=== PATIENT | female | born 1965 | race African-American/Black ===

== ENCOUNTER 2017-05-06 10:37 | Inpatient (IN) | payer OTHER ==
[2017-05-06 11:43] VITALS: BMI 23.6
--- NOTE | 2017-05-06 15:20 | HP ---
COWS - Scale Resting Pulse: 0= [place] 80 or Below Sweatin= Chills/Flushing Restless Observation: 3= Extraneous Movement Pupil Size: 2= Moderately Dilated Bone or Joint Aches: 4=Acute Joint/Muscle Pain Runny Nose/ Eye Tearin= Nasal Congestion GI Upset > 30mins: 0= None Tremor Observation: 2= Slight Tremor Visible Yawning Observation: 1= 1-2x During Session Anxiety or Irritability: 2=Irritable/Anxious Goose Flesh Skin: 0=Smooth Skin COWS Score: 16 CIWA Score - CIWA Score Nausea/Vomitin-No Nausea/No Vomiting Muscle Tremors: 3 Anxiety: 4-Mod. Anxious/Guarded Agitation: 4-Moderately Restless Paroxysmal Sweats: 1-Minimal Palms Moist Orientation: 0-Oriented Tacttile Disturbances: 3-Moderate Itch/Numb/Burn Auditory Disturbances: 0-None Visual Disturbances: 0-None Headache: 0-None Present CIWA-Ar Total Score: 15 Admission ROS S - HPI Chief Complaint: DETOX TX FOR ALCOHOL AND HEROIN DEPENDENCE Allergies/Adverse Reactions: Allergies Allergy/AdvReac Type Severity Reaction Status Date / Time sulfamethoxazole AdvReac Severe Hives Verified 05/06/17 13:45 [From Bactrim] trimethoprim [From Bactrim] AdvReac Severe Hives Verified 05/06/17 13:45 History of Present Illness: 51 Y/O AA/FEMALE WITH A HX ALCOHOL,HEROIN AND CRACK DEPENDENCE SEEKING DETOX TX. Exam Limitations: No Limitations - Ebola screening Have you traveled outside of the country in the last 21 days: No Have you had contact with anyone from an Ebola affected area: No Have you been sick,other than usual withdrawal symptoms: No Do you have a fever: No - Review of Systems Constitutional: Chills, Loss of Appetite, Night Sweats, Unintentional Wgt. Loss EENT: reports: Tearing, Dental Problems (MISSING TEETH) Respiratory: reports: Shortness of Breath (HX ASTHMA), Wheezing Cardiac: reports: Lightheadedness GI: reports: Constipated, Diarrhea, Nausea, Poor Appetite, Poor Fluid Intake, Vomiting : reports: Frequency Musculoskeletal: reports: Back Pain, Joint Pain, Muscle Pain Integumentary: reports: Bruising (SCARS ON UPPER ARM FROM IVDU) Neuro: reports: Headache, Tremors, Unsteady Gait, Dizziness Endocrine: reports: No Symptoms Reported Hematology: reports: Anemia Psychiatric: reports: Orientated x3, Anxious, Depressed Other Systems: Reviewed and Negative Patient History - Patient Medical History Hx Anemia: Yes (on iron ) Hx Asthma: Yes (MDI) Hx Chronic Obstructive Pulmonary Disease (COPD): No Hx Cancer: No Hx Cardiac Disorders: No Hx Congestive Heart Failure: No Hx Hypertension: Yes (ON MED) Hx Hypercholesterolemia: No Hx Pacemaker: No HX Cerebrovascular Accident: No Hx Seizures: No Hx Dementia: No Hx Diabetes: Yes (ON JANUVIA AND GLYPIZIDE) Hx Gastrointestinal Disorders: No Hx Liver Disease: No Hx Genitourinary Disorders: No Hx Sexually Transmitted Disorders: No Hx Renal Disease (ESRD): No Hx Thyroid Disease: No Hx Human Immunodeficiency Virus (HIV): Yes (SINCE 1999;) Hx Hepatitis C: No Hx Depression: Yes (ON MED) Hx Suicide Attempt: No (DENIES) Hx Bipolar Disorder: No Hx Schizophrenia: No - Patient Surgical History Past Surgical History: Yes Hx Neurologic Surgery: No Hx Cataract Extraction: No Hx Cardiac Surgery: No Hx Lung Surgery: No Hx Breast Surgery: No Hx Breast Biopsy: No Hx Abdominal Surgery: Yes (2010-exploratory lap) Hx Appendectomy: No Hx Cholecystectomy: No Hx Genitourinary Surgery: No Hx Section: No Hx Orthopedic Surgery: No Hx Hysterectomy: Yes (2010) Other Surgical History: left arm IV infection 10/2015 Pt had a hysterectomy in 2010 Anesthesia Reaction: No - PPD History Previous Implant?: Yes Documented Results: Negative w/proof Implanted On Prior [facility] Admission?: Yes Date: 07/02/16 Results: 0 mm PPD to be Administered?: No - Reproductive History Patient is a Female of Child Bearing Age (11 -55 yrs old): Yes Last Menstrual Period: 06/23/11 Patient : No - Smoking Cessation Smoking history: Current every day smoker Have you smoked in the past 12 months: Yes Aproximately how many cigarettes per day: 20 Cigars Per Day: 0 Hx Chewing Tobacco Use: No Initiated information on smoking cessation: Yes 'Breaking Loose' booklet given: 05/06/17 - Substance & Tx. History Hx Alcohol Use: Yes (BEER) Hx Substance Use: Yes (HEROIN/CRACK) Substance Use Type: Alcohol, Cocaine, Heroin Hx Substance Use Treatment: Yes (LAST TX AT [facility]-DETOX) - Substances Abused Heroin Route: Injection Frequency: Daily Amount used: 5-7 bags Age of first use: 34 Date of Last Use: 05/06/17 Crack Route: Smoking Frequency: Daily Amount used: $100 Age of first use: 36 Date of Last Use: 05/05/17 Alcohol-beer Route: Oral Frequency: Daily Amount used: 1-6 pk. Age of first use: 38 Date of Last Use: 05/05/17 Family Disease History - Family Disease History Family Disease History: Heart Disease: Brother (alive), Other: Father (alcohol) Admission Physical Exam [facility] - Vital Signs Vital Signs: Vital Signs - 24 hr 05/06/17 11:40 Temperature 97.0 F L Pulse Rate 72 Respiratory 18 Rate Blood Pressure 144/83 - Physical General Appearance: Yes: Moderate Distress, Irritable, Anxious HEENTM: Yes: EOMI, Normocephalic, AWAIS, Pharynx Normal Respiratory: Yes: Chest Non-Tender, Lungs Clear, Normal Breath Sounds, No Respiratory Distress Neck: Yes: No masses,lesions,Nodules, Supple, Trachea in good position Breast: Yes: Breast Exam Deferred Cardiology: Yes: Regular Rhythm, Regular Rate, S1, S2 Abdominal: Yes: Normal Bowel Sounds, Non Tender, Soft Genitourinary: Yes: Other (N/C) Back: Yes: Within Normal Limits Musculoskeletal: Yes: full range of Motion, Gait Steady Extremities: Yes: Normal Range of Motion, Non-Tender Neurological: Yes: town justice II-XII NML intact, Fully Oriented, Alert Integumentary: Yes: Dry, Warm Lymphatic: Yes: Within Normal Limits - Diagnostic (1) Alcohol dependence with uncomplicated withdrawal Current Visit: Yes Status: Acute (2) Opioid dependence with withdrawal Current Visit: Yes Status: Acute (3) Asthma Current Visit: Yes Status: Chronic Qualifiers: Asthma severity: mild intermittent Asthma complication type: uncomplicated Qualified Code(s): J45.20 - Mild intermittent asthma, uncomplicated (4) DM (diabetes mellitus) Current Visit: Yes Status: Chronic Qualifiers: Diabetes mellitus type: type 2 Comment: last bgm 146 (5) HIV (human immunodeficiency virus infection) Current Visit: Yes Status: Chronic Comment: CD4 222/ viral load 60 on complera (6) HTN (hypertension) Current Visit: Yes Status: Chronic Qualifiers: Hypertension type: essential hypertension Qualified Code(s): I10 - Essential (primary) hypertension (7) Nicotine dependence Current Visit: Yes Status: Acute Qualifiers: Nicotine product type: cigarettes Substance use status: in withdrawal Qualified Code(s): F17.213 - Nicotine dependence, cigarettes, with withdrawal (8) Anemia Current Visit: Yes Status: Suspected Cleared for Admission [facility] - Detox or Rehab [facility] Level of Care: Medically Managed Detox Regimen/Protocol: Methadone/Librium S Breath Alcohol Content Breath Alcohol Content: 0 Urine Drug Screen - Results Drug Screen Negative: No Urine Drug Screen Results: ADRIANNE-Cocaine, OPI-Opiates
[2017-05-06] MEDS ORDERED: guaiFENesin/D-METHORPHAN HB 10 ML UNIT-DOSE CUPS PO PRN (15:57)
[2017-05-06] MEDS ORDERED: IBUPROFEN 400 MG TABLET (FP) PO PRN (15:57)
[2017-05-06] MEDS ORDERED: MAGNESIUM HYDROX 2400MG/30ML ORAL SUSPENSION 30 ML CUP PO PRN (15:57)
[2017-05-06] MEDS ORDERED: ACETAMINOPHEN 325 MG TABLET (FP) PO PRN (15:57)
[2017-05-06] MEDS ORDERED: MAGNESIUM CITRATE 300 ML BOTTLE PO PRN (15:57)
[2017-05-06] MEDS ORDERED: MENTHOL/PHENOL 1 EACH UD MM PRN (15:57)
[2017-05-06] MEDS ORDERED: LOPERAMIDE HCL 2 MG CAPSULE PO PRN (15:57)
[2017-05-06] MEDS ORDERED: NICOTINE POLACRILEX 4 MG GUM BUC PRN (15:57)
[2017-05-06] MEDS ORDERED: P-EPHED 60MG/TRIPROLIDI 2.5MG TABLET PO PRN (15:57)
[2017-05-06] MEDS ORDERED: METHADONE HCL 10 MG TABLET (FOR DETOX USE ONLY) PO ONE ×2 (17:15→23:00)
[2017-05-06] MEDS: valACYclovir HCL 500 MG TABLET (FP) PO SCH (17:46)
[2017-05-06] MEDS: chlordiazePOXIDE HCL 25 MG CAPSULE PO SCH ×2 (17:46→22:10)
[2017-05-06] MEDS: NICOTINE 21 MG/24 HOURS TOPICAL PATCH TD SCH (17:50)
[2017-05-06] MEDS ORDERED: cloNIDine HCL 0.1 MG TABLET PO ONE (18:01)
[2017-05-06] MEDS: glipiZIDE 5 MG TABLET (FP) PO SCH (18:26)
[2017-05-06 21:59] LABS: URINE APPEARANCE CLEAR; URINE BILIRUBIN NEGATIVE (NEGATIVE); URINE BLOOD NEGATIVE (NEGATIVE); URINE COLOR LTYELLOW; URINE GLUCOSE (UA) 1+ (NEGATIVE); URINE KETONE NEGATIVE (NEGATIVE); URINE NITRITE NEGATIVE (NEGATIVE); URINE PROTEIN NEGATIVE (NEGATIVE); URINE UROBILINOGEN NEGATIVE mg/dL (0.2-1.0)
[2017-05-06] MEDS ORDERED: diphenhydrAMINE HCL 50 MG CAPSULE PO PRN (22:00)
[2017-05-06 22:06] LABS: URINE LEUK ESTERASE 2+ (NEGATIVE)
[2017-05-06] MEDS: cloNIDine HCL 0.1 MG TABLET PO SCH (22:09)
[2017-05-06] MEDS: THIAMINE HCL 100 MG TABLET (FP) PO SCH (22:10)
[2017-05-06 22:12] LABS: URINE BACTERIA FEW /hpf (NONE SEEN); URINE HYALINE CAST 1 /lpf; URINE MUCUS RARE; URINE RBC <1 /hpf (0-3); URINE WBC 3 /hpf (3-5)
[2017-05-07] MEDS: chlordiazePOXIDE HCL 25 MG CAPSULE PO SCH ×4 (05:40→22:28)
[2017-05-07] MEDS: cloNIDine HCL 0.1 MG TABLET PO SCH ×2 (05:41→22:28)
[2017-05-07] MEDS ORDERED: sitaGLIPtin PHOSPHATE 50 MG TABLET PO SCH (07:00)
[2017-05-07] MEDS: glipiZIDE 5 MG TABLET (FP) PO SCH ×2 (08:14→17:13)
[2017-05-07] MEDS ORDERED: METHADONE HCL 10 MG TABLET (FOR DETOX USE ONLY) PO SCH (10:00)
[2017-05-07] MEDS: valACYclovir HCL 500 MG TABLET (FP) PO SCH (10:28)
[2017-05-07] MEDS: PRENATAL VITAMINS W/ FOLIC ACID TABLET (FP) PO SCH (10:28)
[2017-05-07] MEDS: NIFEdipine E.R. 90 MG TABLET (FP) PO SCH (10:29)
[2017-05-07] MEDS: NICOTINE 21 MG/24 HOURS TOPICAL PATCH TD SCH (10:30)
[2017-05-07 10:33] LABS: MCH 31.8 pg (25.7-33.7); MCHC 34.6 g/dl (32.0-36.0); MEAN CELL VOLUME 91.8 fl (80-96); MEAN PLT VOLUME 7.5 fl (7.5-11.1); PLATELET COUNT 327 K/MM3 (134-434); RDW 15.9 % (11.6-15.6); WHITE BLOOD COUNT 2.9 K/mm3 (4.0-10.0)
[2017-05-07 10:43] LABS: ALBUMIN 2.8 g/dl (3.4-5.0); ALK PHOS 84 U/L (45-117); ANION GAP 6 (8-16); BILIRUBIN,TOTAL 0.2 mg/dL (0.2-1.0); CALCIUM 8.5 mg/dL (8.5-10.1); CO2 29 mmol/L (21-32); CREATININE 2.1 mg/dL (0.55-1.02); GLUCOSE,RANDOM 160 mg/dL (74-106); SGOT/AST 37 U/L (15-37); SGPT/ALT 33 U/L (12-78); TOT PROT 7.3 g/dl (6.4-8.2)
--- NOTE | 2017-05-07 11:38 | PN ---
[facility] CIWA - CIWA Score Nausea/Vomitin-Mild Nausea/No Vomiting Muscle Tremors: 3 Anxiety: 4-Mod. Anxious/Guarded Agitation: 3 Paroxysmal Sweats: 3 Orientation: 0-Oriented Tacttile Disturbances: 1-Very Mild Itch/Numbness Auditory Disturbances: 0-None Visual Disturbances: 0-None Headache: 0-None Present CIWA-Ar Total Score: 15 BHS COWS - Scale Resting Pulse: 0= [place] 80 or Below Sweatin=Flushed/Facial Moisture Restless Observation: 1= Difficult to Sit Still Pupil Size: 0= Normal to Room Light Bone or Joint Aches: 1= Mild Discomfort Runny Nose/ Eye Tearin= Runny Nose/Eyes GI Upset > 30mins: 2= Nausea/Diarrhea Tremor Observation of Outstretched Hands: 2= Slight Tremor Visible Yawning Observation: 0= None Anxiety or Irritability: 2=Irritable/Anxious Goose Flesh Skin: 0=Smooth Skin COWS Score: 12 S Progress Note (SOAP) Subjective: Anxiety,tremors,sweating,interrupted sleep,restless. Objective: 05/07/17 11:42 Vital Signs - 8 hr 05/07/17 05/07/17 06:00 09:54 Temperature 97.5 F L 98.6 F Pulse Rate 60 73 Respiratory 18 18 Rate Blood Pressure 152/84 143/81 Laboratory Tests 05/06/17 05/06/17 05/07/17 14:16 21:00 05:39 WBC RBC Hgb Hct MCV MCH MCHC RDW Plt Count MPV Sodium Potassium Chloride Carbon Dioxide Anion Gap BUN Creatinine Creat Clearance w eGFR POC Glucometer 148 283 Random Glucose Calcium Total Bilirubin AST ALT Alkaline Phosphatase Total Protein Albumin Urine Color Ltyellow Urine Appearance Clear Urine pH 6.0 Ur Specific [place] 1.010 Urine Protein Negative Urine Glucose (UA) 1+ H Urine Ketones Negative Urine Blood Negative Urine Nitrite Negative Urine Bilirubin Negative Urine Urobilinogen Negative Ur Leukocyte Esterase 2+ H Urine RBC <1 Urine WBC 3 Ur Epithelial Cells Rare Urine Bacteria Few Hyaline Casts 1 Urine Mucus Rare 05/07/17 05/07/17 08:00 08:00 WBC 2.9 L RBC 3.63 Hgb 11.5 D Hct 33.3 D MCV 91.8 MCH 31.8 MCHC 34.6 RDW 15.9 H D Plt Count 327 D MPV 7.5 D Sodium 137 Potassium 4.2 Chloride 102 Carbon Dioxide 29 Anion Gap 6 L BUN 38 H D Creatinine 2.1 H Creat Clearance w eGFR 24.64 POC Glucometer Random Glucose 160 H Calcium 8.5 Total Bilirubin 0.2 D AST 37 ALT 33 Alkaline Phosphatase 84 Total Protein 7.3 D Albumin 2.8 L D Urine Color Urine Appearance Urine pH Ur Specific [place] Urine Protein Urine Glucose (UA) Urine Ketones Urine Blood Urine Nitrite Urine Bilirubin Urine Urobilinogen Ur Leukocyte Esterase Urine RBC Urine WBC Ur Epithelial Cells Urine Bacteria Hyaline Casts Urine Mucus labs noted,we'll d/c januvia,increase glipizide to bid and repeat labs. Assessment: 05/07/17 11:49 Withdrawal sx. Plan: Continue detox
[2017-05-07] MEDS ORDERED: FLUCONAZOLE 100 MG TABLET (UD) PO ONE (14:00)
[2017-05-07] MEDS: LISINOPRIL 10 MG TABLET (FP) PO SCH ×2 (14:24→22:28)
--- NOTE | 2017-05-07 14:40 | CONSULT ---
[facility] Psychiatric Consult - Data Date of interview: 05/07/17 Admission source: [facility] Identifying data: This is a 51 year old single Black female jluis of one, she is unemployed and supported on [employer] benefits. Substance Abuse History: Patient reports started using heroin at age of 36, she currently injecting 5-7 bags aday, cocaine/crack daily use fpr $100, alcohol drinking beer 1-6 packs daily. Smokes cigarettes 1/2 PPD. Medical History: Significant for Anemia,BA,DM,HIV+,Genital herpes,Tinea pedis, hysterectomy. Psychiatric History: Patient denies history of psychiatric treatment, report she suffers from insomnia and she was on trazodone 50 mg/hs and zolpidem 10 mg/ hs which not effective and she needs help. Physical/Sexual Abuse/Trauma History: Denies. Mental Status Exam - Mental Status Exam Alert and Oriented to: Time, Place, Person Cognitive Function: Grossly Intact Patient Appearance: Well Groomed Mood: Anxious Affect: Appropriate, Mood Congruent Patient Behavior: Appropriate, Cooperative Speech Pattern: Clear, Appropriate Voice Loudness: Normal Thought Process: Goal Oriented Thought Disorder: Not Present Hallucinations: Denies Suicidal Ideation: Denies Homicidal Ideation: Denies Insight/Judgement: Fair Sleep: Poorly, Difficulty falling asleep Appetite: Fair Muscle strength/Tone: Normal Gait/Station: Normal Psychiatric Findings - Problem List ([place] 1, 2,3) (1) Substance-induced anxiety disorder Current Visit: No Status: Acute (2) Substance-induced sleep disorder Current Visit: No Status: Acute - Initial Treatment Plan Initial Treatment Plan: discussed indications and properties of Belsomra, patient agreed to start.
[2017-05-07] MEDS: chlordiazePOXIDE HCL 25 MG CAPSULE PO PRN ×2 (14:45→19:33)
[2017-05-07] MEDS: MICONAZOLE NITRATE 2% VAGINAL CREAM 45 GM TUBE VG SCH (22:27)
[2017-05-07] MEDS: SUVOREXANT 10 MG TABLET PO SCH (22:28)
[2017-05-07] MEDS: THIAMINE HCL 100 MG TABLET (FP) PO SCH (22:28)
[2017-05-08] MEDS: chlordiazePOXIDE HCL 25 MG CAPSULE PO SCH ×2 (05:33→10:36)
[2017-05-08] MEDS: glipiZIDE 5 MG TABLET (FP) PO SCH ×2 (07:19→17:15)
[2017-05-08 10:34] LABS: MCH 31.9 pg (25.7-33.7); MCHC 34.5 g/dl (32.0-36.0); MEAN CELL VOLUME 92.4 fl (80-96); MEAN PLT VOLUME 7.9 fl (7.5-11.1); PLATELET COUNT 353 K/MM3 (134-434); RDW 15.9 % (11.6-15.6); WHITE BLOOD COUNT 5.2 K/mm3 (4.0-10.0)
[2017-05-08] MEDS: NICOTINE 21 MG/24 HOURS TOPICAL PATCH TD SCH (10:35)
[2017-05-08] MEDS: PRENATAL VITAMINS W/ FOLIC ACID TABLET (FP) PO SCH (10:35)
[2017-05-08] MEDS: cloNIDine HCL 0.1 MG TABLET PO SCH ×2 (10:35→22:05)
[2017-05-08] MEDS: METHADONE HCL 5 MG TABLET (FOR DETOX USE ONLY) PO SCH (10:35)
[2017-05-08] MEDS: LISINOPRIL 10 MG TABLET (FP) PO SCH ×2 (10:35→22:05)
[2017-05-08] MEDS: FLUCONAZOLE 100 MG TABLET (UD) PO SCH (10:35)
[2017-05-08 10:36] LABS: CREATININE 2.2 mg/dL (0.55-1.02)
[2017-05-08] MEDS: NIFEdipine E.R. 90 MG TABLET (FP) PO SCH (10:36)
[2017-05-08] MEDS: valACYclovir HCL 500 MG TABLET (FP) PO SCH (10:36)
--- NOTE | 2017-05-08 12:27 | PN ---
S CIWA - CIWA Score Nausea/Vomitin-Mild Nausea/No Vomiting Muscle Tremors: 3 Anxiety: 3 Agitation: 3 Paroxysmal Sweats: 3 Orientation: 0-Oriented Tacttile Disturbances: 1-Very Mild Itch/Numbness Auditory Disturbances: 0-None Visual Disturbances: 0-None Headache: 0-None Present CIWA-Ar Total Score: 14 BHS COWS - Scale Resting Pulse: 1= [place] 81-100 Sweatin=Flushed/Facial Moisture Restless Observation: 1= Difficult to Sit Still Pupil Size: 0= Normal to Room Light Bone or Joint Aches: 1= Mild Discomfort Runny Nose/ Eye Tearin= Nasal Congestion GI Upset > 30mins: 1= Stomach Cramp Tremor Observation of Outstretched Hands: 2= Slight Tremor Visible Yawning Observation: 1= 1-2x During Session Anxiety or Irritability: 2=Irritable/Anxious Goose Flesh Skin: 0=Smooth Skin COWS Score: 12 S Progress Note (SOAP) Subjective: Sweating,anxiety,tremors,interrupted sleep,restless,muscle aches Objective: 05/08/17 12:26 Vital Signs - 8 hr 05/08/17 05/08/17 06:00 10:00 Temperature 98.2 F 97.8 F Pulse Rate 85 91 H Respiratory 16 16 Rate Blood Pressure 99/60 133/67 Laboratory Last Values WBC 5.2 K/mm3 (4.0-10.0) D 05/08/17 07:45 RBC 3.58 M/mm3 (3.60-5.2) L 05/08/17 07:45 Hgb 11.4 GM/dL (10.7-15.3) 05/08/17 07:45 Hct 33.1 % (32.4-45.2) 05/08/17 07:45 MCV 92.4 fl (80-96) 05/08/17 07:45 MCH 31.9 pg (25.7-33.7) 05/08/17 07:45 MCHC 34.5 g/dl (32.0-36.0) 05/08/17 07:45 RDW 15.9 % (11.6-15.6) H 05/08/17 07:45 Plt Count 353 K/MM3 (134-434) 05/08/17 07:45 MPV 7.9 fl (7.5-11.1) 05/08/17 07:45 Sodium 137 mmol/L (136-145) 05/07/17 08:00 Potassium 4.2 mmol/L (3.5-5.1) 05/07/17 08:00 Chloride 102 mmol/L (98-107) 05/07/17 08:00 Carbon Dioxide 29 mmol/L (21-32) 05/07/17 08:00 Anion Gap 6 (8-16) L 05/07/17 08:00 BUN 37 mg/dL (7-18) H 05/08/17 07:45 Creatinine 2.2 mg/dL (0.55-1.02) H 05/08/17 07:45 Creat Clearance w eGFR 24.64 (>60) 05/07/17 08:00 POC Glucometer 169 UNITS (()) 05/08/17 05:33 Random Glucose 160 mg/dL (74-106) H 05/07/17 08:00 Calcium 8.5 mg/dL (8.5-10.1) 05/07/17 08:00 Total Bilirubin 0.2 mg/dL (0.2-1.0) D 05/07/17 08:00 AST 37 U/L (15-37) 05/07/17 08:00 ALT 33 U/L (12-78) 05/07/17 08:00 Alkaline Phosphatase 84 U/L (45-117) 05/07/17 08:00 Total Protein 7.3 g/dl (6.4-8.2) D 05/07/17 08:00 Albumin 2.8 g/dl (3.4-5.0) L D 05/07/17 08:00 Urine Color Ltyellow 05/06/17 21:00 Urine Appearance Clear 05/06/17 21:00 Urine pH 6.0 (5.0-8.0) 05/06/17 21:00 Ur Specific [place] 1.010 (1.005-1.025) 05/06/17 21:00 Urine Protein Negative (NEGATIVE) 05/06/17 21:00 Urine Glucose (UA) 1+ (NEGATIVE) H 05/06/17 21:00 Urine Ketones Negative (NEGATIVE) 05/06/17 21:00 Urine Blood Negative (NEGATIVE) 05/06/17 21:00 Urine Nitrite Negative (NEGATIVE) 05/06/17 21:00 Urine Bilirubin Negative (NEGATIVE) 05/06/17 21:00 Urine Urobilinogen Negative mg/dL (0.2-1.0) 05/06/17 21:00 Ur Leukocyte Esterase 2+ (NEGATIVE) H 05/06/17 21:00 Urine RBC <1 /hpf (0-3) 05/06/17 21:00 Urine WBC 3 /hpf (3-5) 05/06/17 21:00 Ur Epithelial Cells Rare /hpf (FEW) 05/06/17 21:00 Urine Bacteria Few /hpf (NONE SEEN) 05/06/17 21:00 Hyaline Casts 1 /lpf 05/06/17 21:00 Urine Mucus Rare 05/06/17 21:00 RPR Titer Nonreactive (NONREACTIVE) 05/07/17 08:00 labs noted Assessment: 05/08/17 12:27 Withdrawal sx. Plan: Continue detox
[2017-05-08] MEDS: chlordiazePOXIDE HCL 25 MG CAPSULE PO PRN (14:16)
[2017-05-08] MEDS: MAG HYDROX/AL HYDROX/SIMETH 30 ML UNIT-DOSE CUP PO PRN (14:18)
[2017-05-08] MEDS: chlordiazePOXIDE 5 MG CAPSULE PO SCH ×2 (17:15→22:05)
[2017-05-08] MEDS: SUVOREXANT 10 MG TABLET PO SCH (22:05)
[2017-05-08] MEDS: MICONAZOLE NITRATE 2% VAGINAL CREAM 45 GM TUBE VG SCH (22:05)
[2017-05-08] MEDS: THIAMINE HCL 100 MG TABLET (FP) PO SCH (22:05)
[2017-05-09] MEDS: chlordiazePOXIDE 5 MG CAPSULE PO SCH ×2 (05:17→10:33)
[2017-05-09] MEDS: glipiZIDE 5 MG TABLET (FP) PO SCH ×2 (07:18→17:24)
--- NOTE | 2017-05-09 09:31 | PN ---
BHS Progress Note (SOAP) Subjective: body aches interrupted sleep sweats agitation Objective: 05/09/17 09:28 Vital Signs Temperature 97.9 F 05/09/17 10:00 Pulse Rate 78 05/09/17 10:00 Respiratory Rate 18 05/09/17 10:00 Blood Pressure 126/65 05/09/17 10:00 O2 Sat by Pulse Oximetry (%) awake/alert lying in bed no acute distress Assessment: 05/09/17 09:30 withdrawal sx Plan: continue detox increase fluids
--- NOTE | 2017-05-09 10:00 | EKG ---
Test Reason : Blood Pressure : / mmHG Vent. Rate : 066 BPM Atrial Rate : 066 BPM P-R Int : 166 ms QRS Dur : 078 ms QT Int : 428 ms P-R-T Axes : 070 045 -60 degrees QTc Int : 448 ms NORMAL SINUS RHYTHM POSSIBLE LEFT ATRIAL ENLARGEMENT LEFT VENTRICULAR HYPERTROPHY T WAVE ABNORMALITY, CONSIDER INFEROLATERAL ISCHEMIA ABNORMAL ECG WHEN COMPARED WITH ECG OF 09-MAR-2010 11:24, T WAVE VARIATION Confirmed by CAROLE ARITA, BARBIE ([id number]) on 05/09/2017 9:59:35 AM Referred By: Confirmed By:BARBIE LAM MD
[2017-05-09] MEDS: valACYclovir HCL 500 MG TABLET (FP) PO SCH (10:32)
[2017-05-09] MEDS: LISINOPRIL 10 MG TABLET (FP) PO SCH ×2 (10:32→22:58)
[2017-05-09] MEDS: FLUCONAZOLE 100 MG TABLET (UD) PO SCH (10:32)
[2017-05-09] MEDS: cloNIDine HCL 0.1 MG TABLET PO SCH ×2 (10:32→22:57)
[2017-05-09] MEDS: NIFEdipine E.R. 90 MG TABLET (FP) PO SCH (10:32)
[2017-05-09] MEDS: METHADONE HCL 5 MG TABLET (FOR DETOX USE ONLY) PO SCH (10:34)
[2017-05-09] MEDS: PRENATAL VITAMINS W/ FOLIC ACID TABLET (FP) PO SCH (10:34)
[2017-05-09] MEDS: NICOTINE 21 MG/24 HOURS TOPICAL PATCH TD SCH (10:35)
[2017-05-09] MEDS: chlordiazePOXIDE HCL 25 MG CAPSULE PO PRN (12:42)
[2017-05-09] MEDS: chlordiazePOXIDE HCL 10 MG CAPSULE PO SCH ×2 (17:24→22:32)
[2017-05-09] MEDS: hydrOXYzine PAMOATE 50 MG CAPSULE (FP) PO PRN (19:36)
[2017-05-09] MEDS: MAG HYDROX/AL HYDROX/SIMETH 30 ML UNIT-DOSE CUP PO PRN (19:38)
[2017-05-09] MEDS: SUVOREXANT 10 MG TABLET PO SCH (22:31)
[2017-05-09] MEDS: THIAMINE HCL 100 MG TABLET (FP) PO SCH (22:32)
[2017-05-09] MEDS: MICONAZOLE NITRATE 2% VAGINAL CREAM 45 GM TUBE VG SCH (22:58)
[2017-05-10] MEDS: chlordiazePOXIDE HCL 10 MG CAPSULE PO SCH ×2 (05:39→10:59)
[2017-05-10] MEDS: glipiZIDE 5 MG TABLET (FP) PO SCH ×2 (07:59→17:36)
[2017-05-10] MEDS ORDERED: METHADONE HCL 10 MG TABLET (FOR DETOX USE ONLY) PO SCH (10:00)
[2017-05-10] MEDS: valACYclovir HCL 500 MG TABLET (FP) PO SCH (10:57)
[2017-05-10] MEDS: PRENATAL VITAMINS W/ FOLIC ACID TABLET (FP) PO SCH (10:57)
[2017-05-10] MEDS: NICOTINE 21 MG/24 HOURS TOPICAL PATCH TD SCH (10:57)
[2017-05-10] MEDS: LISINOPRIL 10 MG TABLET (FP) PO SCH ×2 (10:57→22:14)
[2017-05-10] MEDS: cloNIDine HCL 0.1 MG TABLET PO SCH ×2 (10:57→22:14)
[2017-05-10] MEDS: NIFEdipine E.R. 90 MG TABLET (FP) PO SCH (10:57)
[2017-05-10] MEDS: FLUCONAZOLE 100 MG TABLET (UD) PO SCH (10:57)
[2017-05-10] MEDS ORDERED: ONDANSETRON *ODT* 4 MG TABLET SL PRN (11:11)
--- NOTE | 2017-05-10 11:11 | PN ---
BHS Progress Note (SOAP) Subjective: agitation nausea Objective: 05/10/17 11:10 Vital Signs Temperature 98.6 F 05/10/17 10:00 Pulse Rate 95 05/10/17 10:00 Respiratory Rate 18 05/10/17 10:00 Blood Pressure 101/68 05/10/17 10:00 O2 Sat by Pulse Oximetry (%) awake/alert ambulating no acute distress Assessment: 05/10/17 11:11 withdrawal sx Plan: continue detox increase fluids zofran prn d/c in am
[2017-05-10] MEDS ORDERED: ALBUTEROL SO4 6.7 GM HFA INHALER IH ONE (13:18)
[2017-05-10] MEDS: ALBUTEROL SO4 6.7 GM HFA INHALER IH PRN ×2 (13:19→22:15)
[2017-05-10] MEDS: hydrOXYzine PAMOATE 50 MG CAPSULE (FP) PO PRN ×2 (13:19→19:08)
[2017-05-10] MEDS: MAG HYDROX/AL HYDROX/SIMETH 30 ML UNIT-DOSE CUP PO PRN (19:08)
[2017-05-10] MEDS: SUVOREXANT 10 MG TABLET PO SCH (22:13)
[2017-05-10] MEDS: MICONAZOLE NITRATE 2% VAGINAL CREAM 45 GM TUBE VG SCH (22:14)
[2017-05-10] MEDS: THIAMINE HCL 100 MG TABLET (FP) PO SCH (22:15)
[2017-05-11] MEDS ORDERED: METHADONE HCL 5 MG TABLET (FOR DETOX USE ONLY) PO SCH (06:00)
[2017-05-11] MEDS: glipiZIDE 5 MG TABLET (FP) PO SCH (07:08)
--- NOTE | 2017-05-11 08:58 | DS ---
[facility] Detox Discharge Summary Admission Date: 05/06/17 Discharge Date: 05/11/17 - History Present History: Alcohol Dependence, Opioid Dependence - Physical Exam Results Vital Signs: Vital Signs Temperature 98.2 F 05/11/17 06:33 Pulse Rate 88 05/11/17 06:33 Respiratory Rate 18 05/11/17 06:33 Blood Pressure 121/60 05/11/17 06:33 O2 Sat by Pulse Oximetry (%) - Treatment Hospital Course: Detox Protocol Followed, Detoxed Safely, Responded well, Discharged Condition Good, Rehab Referral Accepted - Medication Discharge Medications: Ambulatory Orders Zolpidem Tartrate [Ambien -] 10 mg PO HS 05/12/15 Glipizide [Glucotrol -] 5 mg PO DAILY 06/30/16 Sitagliptin Phosphate [Januvia -] 100 mg PO DAILY@0700 06/30/16 Valacyclovir HCl [Valtrex -] 500 mg PO DAILY 06/30/16 Trazodone HCl [Desyrel -] 50 mg PO HS #30 tablet 07/02/16 Albuterol Sulfate Inhaler - [Ventolin HFA Inhaler -] 2 inh IH Q4H PRN 05/06/17 Clonidine HCl [Catapres -] 0.3 mg PO TID 05/06/17 Darunavir/Cobicistat [Prezcobix 800 mg-150 mg Tablet] 1 each PO DAILY 05/06/17 Emtricitabine/Tenofov Alafenam [Descovy 200-25 mg Tablet] 1 each PO DAILY Nifedipine ER [Procardia Xl -] 90 mg PO DAILY 05/06/17 - Diagnosis (1) Alcohol dependence with uncomplicated withdrawal Current Visit: Yes Status: Chronic (2) Nicotine dependence Current Visit: Yes Status: Chronic Qualifiers: Nicotine product type: cigarettes Substance use status: uncomplicated Qualified Code(s): F17.210 - Nicotine dependence, cigarettes, uncomplicated (3) Opioid dependence with withdrawal Current Visit: Yes Status: Chronic (4) Asthma Current Visit: Yes Status: Chronic Qualifiers: Asthma severity: mild intermittent Asthma complication type: uncomplicated Qualified Code(s): J45.20 - Mild intermittent asthma, uncomplicated (5) DM (diabetes mellitus) Current Visit: Yes Status: Chronic Qualifiers: Diabetes mellitus type: type 2 Diabetes mellitus complication status: without complication Diabetes mellitus intermodal dispatcher insulin use: unspecified intermodal dispatcher insulin use status Qualified Code(s): E11.9 - Type 2 diabetes mellitus without complications (6) HIV (human immunodeficiency virus infection) Current Visit: Yes Status: Chronic (7) HTN (hypertension) Current Visit: Yes Status: Chronic Qualifiers: Hypertension type: essential hypertension Qualified Code(s): I10 - Essential (primary) hypertension (8) Anemia Current Visit: Yes Status: Suspected (9) Back pain Current Visit: No Status: Acute (10) Drug-induced mood disorder Current Visit: No Status: Acute (11) Substance-induced anxiety disorder Current Visit: No Status: Acute (12) Substance-induced sleep disorder Current Visit: No Status: Acute (13) UTI (urinary tract infection) Current Visit: No Status: Acute Qualifiers: Encounter type: initial encounter - AMA Did Patient Leave Against Medical Advice: No (rehab/revelations)
[2017-05-11] MEDS: NIFEdipine E.R. 90 MG TABLET (FP) PO SCH (10:33)
[2017-05-11] MEDS: LISINOPRIL 10 MG TABLET (FP) PO SCH (10:33)
[2017-05-11] MEDS: cloNIDine HCL 0.1 MG TABLET PO SCH (10:33)
[2017-05-11] MEDS: PRENATAL VITAMINS W/ FOLIC ACID TABLET (FP) PO SCH (10:33)
[2017-05-11] MEDS: FLUCONAZOLE 100 MG TABLET (UD) PO SCH (10:33)
[2017-05-11] MEDS: NICOTINE 21 MG/24 HOURS TOPICAL PATCH TD SCH (10:33)
[2017-05-11] MEDS: valACYclovir HCL 500 MG TABLET (FP) PO SCH (10:33)
[2017-05-11 10:53] VITALS: BP 130/73; PULSE 91; TEMP 99
== END 2017-05-11 12:00 | disposition other institution (70) | DRG 773 ==
LOC: YASAS 10:37 → Y6N 15:19
PROVIDERS: ADMIT Internal Medicine; ATTEND Surgery
PROC: HZ2ZZZZ Detoxification Services for Substance Abuse Treatment (ICD-10-PCS; principal; 2017-05-06)
DX: F11.23 Opioid dependence with withdrawal (principal); F10.230 Alcohol dependence with withdrawal, uncomplicated; F14.20 Cocaine dependence, uncomplicated; F17.210 Nicotine dependence, cigarettes, uncomplicated; F19.24 Other psychoactive substance dependence with psychoactive substance-induced mood disorder; F19.280 Other psychoactive substance dependence with psychoactive substance-induced anxiety disorder; F19.282 Other psychoactive substance dependence with psychoactive substance-induced sleep disorder; I10 Essential (primary) hypertension; J45.20 Mild intermittent asthma, uncomplicated; Z21 Asymptomatic human immunodeficiency virus [HIV] infection status; D64.9 Anemia, unspecified; N39.0 Urinary tract infection, site not specified; M54.5 Low back pain; E11.9 Type 2 diabetes mellitus without complications; B35.3 Tinea pedis; Z87.42 Personal history of other diseases of the female genital tract; Z88.1 Allergy status to other antibiotic agents; Z88.2 Allergy status to sulfonamides; Z90.710 Acquired absence of both cervix and uterus; Z79.84 Long term (current) use of oral hypoglycemic drugs
CPT/HCPCS: 36415; 80053; 81003; 81015; 82565; 84520; 85027; 86593; 93005; 93010

== ENCOUNTER 2017-05-11 12:05 | Inpatient (IN) | payer OTHER ==
[2017-05-11] MEDS ORDERED: NICOTINE POLACRILEX 2 MG GUM BUC PRN (14:20)
[2017-05-11] MEDS ORDERED: MAGNESIUM HYDROX 2400MG/30ML ORAL SUSPENSION 30 ML CUP PO PRN (14:20)
[2017-05-11] MEDS ORDERED: MAG HYDROX/AL HYDROX/SIMETH 30 ML UNIT-DOSE CUP PO PRN (14:20)
[2017-05-11] MEDS ORDERED: LOPERAMIDE HCL 2 MG CAPSULE PO PRN (14:20)
[2017-05-11] MEDS ORDERED: IBUPROFEN 400 MG TABLET (FP) PO PRN (14:20)
[2017-05-11] MEDS ORDERED: MAGNESIUM CITRATE 300 ML BOTTLE PO PRN (14:20)
[2017-05-11] MEDS ORDERED: ACETAMINOPHEN 325 MG TABLET (FP) PO PRN (14:20)
[2017-05-11] MEDS ORDERED: MENTHOL/PHENOL 1 EACH UD MM PRN (14:20)
[2017-05-11] MEDS ORDERED: guaiFENesin/D-METHORPHAN HB 10 ML UNIT-DOSE CUPS PO PRN (14:20)
[2017-05-11] MEDS ORDERED: P-EPHED 60MG/TRIPROLIDI 2.5MG TABLET PO PRN (14:20)
--- NOTE | 2017-05-11 14:22 | HP ---
Psychiatrist Admission - Data Date of interview: 05/11/17 Admission source: [address] [place] [address] detox Identifying data: This is the second admission to [address] [place] [address] for this 51 years old AA single mother of one adult daughter, resides in rented room,supported by [employer]. Medical History: Significant for BA,DM,Anemia,HIV+,Genital herpes.Tinea pedis. Psychiatric History: Patient reports felling depressed on and off,having sleeping difficulties.She was placed on Belsomra 10 mg po hs while in Detox on [address] [place] [address] prescribed by . Physical/Sexual Abuse/Trauma History: denies Vital Signs: Vital Signs - 24 hr 05/11/17 12:10 Temperature 97.9 F Pulse Rate 80 Respiratory 18 Rate Blood Pressure 109/70 Allergies/Adverse Reactions: Allergies Allergy/AdvReac Type Severity Reaction Status Date / Time sulfamethoxazole AdvReac Severe Hives Verified 05/13/17 05:21 [From Bactrim] trimethoprim [From Bactrim] AdvReac Severe Hives Verified 05/13/17 05:21 Date of last physical exam: 05/11/17 Concur with the findings of this exam: Yes - Substance Abuse/Tx History Hx Alcohol Use: Yes (drinking since 17 yo,1 pint of vodka daily) Hx Substance Use: Yes (heroin since 36 yo,4 bags daily,Klonopin 1 mg daily on/ off,cocaine ) Substance Use Type: Alcohol, Cocaine, Heroin, Tranquilizers Hx Substance Use Treatment: Yes (left this program AMA in 2014) - Admission Criteria Previous failed treatment: Yes Poor recovery environment: Yes Comorbidities: Yes Lacks judgement: Yes Mental Status Exam - Mental Status Exam Alert and Oriented to: Time, Place, Person Cognitive Function: Grossly Intact Patient Appearance: Well Groomed Mood: Euthymic Affect: Mood Congruent Patient Behavior: Cooperative Speech Pattern: Clear Voice Loudness: Normal Thought Process: Goal Oriented Thought Disorder: Not Present Hallucinations: Denies Suicidal Ideation: Denies Homicidal Ideation: Denies Insight/Judgement: Fair Sleep: Difficulty falling asleep Appetite: Good Muscle strength/Tone: Normal Gait/Station: Normal Psychiatric Findings - Problem List ([place] 1, 2,3) (1) Drug-induced mood disorder Current Visit: Yes Status: Chronic (2) UTI (urinary tract infection) Current Visit: Yes Status: Chronic Qualifiers: Encounter type: initial encounter (3) Asthma Current Visit: Yes Status: Chronic Qualifiers: Asthma severity: mild intermittent Asthma complication type: uncomplicated Qualified Code(s): J45.20 - Mild intermittent asthma, uncomplicated (4) DM (diabetes mellitus) Current Visit: Yes Status: Chronic Qualifiers: Diabetes mellitus type: type 2 Diabetes mellitus complication status: without complication Diabetes mellitus terminal worker insulin use: unspecified senior care insulin use status Qualified Code(s): E11.9 - Type 2 diabetes mellitus without complications Comment: last bgm 146 - Initial Treatment Plan Initial Treatment Plan: Belsomra 10 mg po hs prn for insomnia.Will monitor progress.
[2017-05-11] MEDS ORDERED: ALBUTEROL SO4 6.7 GM HFA INHALER IH PRN (14:27)
--- NOTE | 2017-05-11 14:34 | HP ---
[facility] Rehab Assess/Revision - Admission History Admitted to Rehab from: [facility] [address] [facility] Date of Admission to Rehab: 05/11/17 - Vital signs Vital Signs: Vital Signs Period Temp Pulse Resp BP Sys/Rojas Pulse Ox Last 24 Hr 97.9 F 80-88 18 109-127/70-75 - Findings Detox History & Physical reviewed: Yes Concur with findings: Yes
[2017-05-11] MEDS ORDERED: INSULIN (NOVOLOG) ASPART 100 UNITS/ML 10ML VIAL ONE (17:04)
[2017-05-11] MEDS: INSULIN (NOVOLOG) ASPART 100 UNITS/ML 10ML VIAL SQ SCH (17:09)
[2017-05-11] MEDS ORDERED: PT OWN MED DRAWER 7, Y5N ONE (18:10)
[2017-05-11] MEDS: THIAMINE HCL 100 MG TABLET (FP) PO SCH (21:15)
[2017-05-11] MEDS: MICONAZOLE NITRATE 2% VAGINAL CREAM 45 GM TUBE VG SCH (21:15)
[2017-05-11] MEDS: LISINOPRIL 10 MG TABLET (FP) PO SCH (21:15)
[2017-05-11] MEDS: SUVOREXANT 10 MG TABLET PO PRN (21:19)
[2017-05-11] MEDS: diphenhydrAMINE HCL 50 MG CAPSULE PO PRN (22:38)
[2017-05-12] MEDS: diphenhydrAMINE HCL 50 MG CAPSULE PO PRN ×3 (00:43→23:36)
[2017-05-12] MEDS: INSULIN (NOVOLOG) ASPART 100 UNITS/ML 10ML VIAL SQ SCH ×2 (06:17→17:16)
[2017-05-12] MEDS ORDERED: INSULIN (NOVOLOG) ASPART 100 UNITS/ML 10ML VIAL ONE (06:18)
[2017-05-12] MEDS: glipiZIDE 5 MG TABLET (FP) PO SCH (06:18)
[2017-05-12] MEDS ORDERED: PT OWN MED DRAWER 7, Y5N ONE (06:18)
[2017-05-12] MEDS: DARUNAVIR ETHANOLATE 800 MG TAB PO SCH (07:29)
--- NOTE | 2017-05-12 07:49 | PN ---
S Progress Note Note: PATIENT WITH MULTIPLE COMPLAINT,FEEL WEAK,GENERALIZED PAIN,STATED AFTER COUGHING ,SCANT OF BLOOD SEEN WITH SPUTUM,THRUSH DORSAL ASPECT OF TONGUE Vital Signs Temperature 98.1 F 05/12/17 06:48 Pulse Rate 97 H 05/12/17 06:48 Respiratory Rate 18 05/12/17 06:48 Blood Pressure 143/82 05/12/17 06:48 O2 Sat by Pulse Oximetry (%) NO SOB,NO FEVER LUNG NO WHEEZING TREATMENT OBSERVATION CBC,BMP TO BE DONE CHEST XRAY NUTRITIONAL SUPPORT
[2017-05-12] MEDS: valACYclovir HCL 500 MG TABLET (FP) PO SCH (09:27)
[2017-05-12] MEDS: FLUCONAZOLE 100 MG TABLET (UD) PO SCH (09:27)
[2017-05-12] MEDS: PRENATAL VITAMINS W/ FOLIC ACID TABLET (FP) PO SCH (09:27)
[2017-05-12] MEDS: LISINOPRIL 10 MG TABLET (FP) PO SCH ×2 (09:28→21:11)
[2017-05-12] MEDS: NIFEdipine E.R. 90 MG TABLET (FP) PO SCH (09:28)
[2017-05-12 09:59] LABS: MCH 31.9 pg (25.7-33.7); MEAN CELL VOLUME 93.8 fl (80-96); PLATELET COUNT 340 K/MM3 (134-434); RDW 15.9 % (11.6-15.6); WHITE BLOOD COUNT 5.8 K/mm3 (4.0-10.0)
[2017-05-12] MEDS ORDERED: EMTRICITABINE 200MG/TENOFOVIR 300MG PO SCH (10:00)
[2017-05-12 10:18] LABS: ANION GAP 6 (8-16); CALCIUM 9.9 mg/dL (8.5-10.1); CO2 28 mmol/L (21-32); CREATININE 1.9 mg/dL (0.55-1.02); GLUCOSE,RANDOM 204 mg/dL (74-106)
[2017-05-12] MEDS: hydrOXYzine PAMOATE 50 MG CAPSULE (FP) PO PRN (12:46)
[2017-05-12] MEDS ORDERED: RANITIDINE HCL 150 MG TABLET (FP) PO ONE (14:07)
--- NOTE | 2017-05-12 14:10 | PN ---
[facility] Progress Note Note: Cx-ray is negative, creat 1.9 improving Laboratory Results - last 24 hr 05/11/17 05/12/17 05/12/17 17:08 06:14 07:30 WBC 5.8 RBC 3.30 L Hgb 10.5 L Hct 31.0 L MCV 93.8 MCH 31.9 MCHC 34.0 RDW 15.9 H Plt Count 340 MPV 7.0 L D Sodium Potassium Chloride Carbon Dioxide Anion Gap BUN Creatinine POC Glucometer 260 215 Random Glucose Calcium 05/12/17 07:30 WBC RBC Hgb Hct MCV MCH MCHC RDW Plt Count MPV Sodium 135 L Potassium 5.0 Chloride 101 Carbon Dioxide 28 Anion Gap 6 L BUN 38 H Creatinine 1.9 H POC Glucometer Random Glucose 204 H D Calcium 9.9 give truvada q2d, d/c mag containing meds
[2017-05-12] MEDS: RITONAVIR 100 MG TABLET PO SCH (14:34)
--- NOTE | 2017-05-12 15:57 | PN ---
S Progress Note Note: CALLED TO SEE A PT WHO C/O FALL IN DAYROOM WHILE GETTING UP FROM CHAIR. STATES FELL ON HER LEFT BUTTOCK. PT IS ALERT O X 3. NO ACUTE DISTRESS. DENIES PAIN. Vital Signs Temperature 98.8 F 05/12/17 15:24 Pulse Rate 87 05/12/17 15:24 Respiratory Rate 18 05/12/17 15:24 Blood Pressure 113/72 05/12/17 15:24 O2 Sat by Pulse Oximetry (%) EXAM:NO EVIDENCE OF BRUISE,REDNESS OR SWELLING TO LEFT SIDE. AMBULATING WITH NO DIFFICULTY. ACTIVE ROM ALL EXTREMITIES. PLAN:FALL PRECAUTION.
[2017-05-12] MEDS ORDERED: INSULIN DETEMIR 100 UNITS/ML MDV SQ ONE (16:53)
[2017-05-12] MEDS: BACITRACIN 0.9 GM PACKET TP SCH (17:16)
[2017-05-12] MEDS: MICONAZOLE NITRATE 2% VAGINAL CREAM 45 GM TUBE VG SCH (21:10)
[2017-05-12] MEDS: THIAMINE HCL 100 MG TABLET (FP) PO SCH (21:11)
[2017-05-12] MEDS: SUVOREXANT 10 MG TABLET PO PRN (21:11)
[2017-05-12] MEDS ORDERED: RANITIDINE HCL 150 MG TABLET (FP) PO SCH (22:00)
[2017-05-13] MEDS ORDERED: MAG HYDROX/AL HYDROX/SIMETH 355 ML ORAL.SUSP PO SCH
--- NOTE | 2017-05-13 02:35 | PN ---
ANILA Progress Note Note: PATIENT CONTINUES WITH MULTIPLE COMPLAINTS OF GENERALIZED WEAKNESS, ABDOMINAL PAIN, DISTENTION WELL COUGHING BLOOD-TINGED SPUTUM. REPORT GIVEN TO DR. HUDSON AT [facility] AND THE PT. WILL BE EVALUATED AT THE ER.
[2017-05-13] MEDS: INSULIN (NOVOLOG) ASPART 100 UNITS/ML 10ML VIAL SQ SCH ×2 (07:59→17:14)
[2017-05-13] MEDS: glipiZIDE 5 MG TABLET (FP) PO SCH (07:59)
[2017-05-13] MEDS: RITONAVIR 100 MG TABLET PO SCH (07:59)
[2017-05-13] MEDS: DARUNAVIR ETHANOLATE 800 MG TAB PO SCH (08:00)
[2017-05-13] MEDS: PRENATAL VITAMINS W/ FOLIC ACID TABLET (FP) PO SCH (10:04)
[2017-05-13] MEDS: BACITRACIN 0.9 GM PACKET TP SCH (10:04)
[2017-05-13] MEDS: LISINOPRIL 10 MG TABLET (FP) PO SCH ×2 (10:04→21:38)
[2017-05-13] MEDS: FLUCONAZOLE 100 MG TABLET (UD) PO SCH (10:04)
[2017-05-13] MEDS: NIFEdipine E.R. 90 MG TABLET (FP) PO SCH (10:05)
[2017-05-13] MEDS: valACYclovir HCL 500 MG TABLET (FP) PO SCH (10:05)
[2017-05-13] MEDS: RANITIDINE HCL 150 MG TABLET (FP) PO SCH (10:05)
--- NOTE | 2017-05-13 15:19 | PN ---
[facility] Progress Note Note: pt. was sent to ED because of abd. pain. W/U is negative. Recommendation : Nystatin oral suspension
[2017-05-13] MEDS: NYSTATIN 500,000 UNITS/5 ML SUSPENSION PO SCH ×2 (17:29→21:40)
[2017-05-13] MEDS ORDERED: RITONAVIR 100 MG TABLET PO ONE (19:15)
[2017-05-13] MEDS ORDERED: DARUNAVIR ETHANOLATE 800 MG TAB PO ONE (19:15)
[2017-05-13] MEDS ORDERED: PT OWN MED DRAWER 7, Y5N ONE (19:40)
[2017-05-13] MEDS: THIAMINE HCL 100 MG TABLET (FP) PO SCH (21:37)
[2017-05-13] MEDS: hydrOXYzine PAMOATE 50 MG CAPSULE (FP) PO PRN (21:37)
[2017-05-13] MEDS: MICONAZOLE NITRATE 2% VAGINAL CREAM 45 GM TUBE VG SCH (21:38)
[2017-05-13] MEDS: diphenhydrAMINE HCL 50 MG CAPSULE PO PRN (23:42)
[2017-05-13] MEDS ORDERED: RANITIDINE HCL 150 MG TABLET (FP) PO ONE (23:47)
[2017-05-14] MEDS: glipiZIDE 5 MG TABLET (FP) PO SCH (06:48)
[2017-05-14] MEDS: INSULIN (NOVOLOG) ASPART 100 UNITS/ML 10ML VIAL SQ SCH ×2 (08:05→17:18)
[2017-05-14] MEDS: DARUNAVIR ETHANOLATE 800 MG TAB PO SCH (08:08)
[2017-05-14] MEDS ORDERED: INSULIN (NOVOLOG) ASPART 100 UNITS/ML 10ML VIAL ONE ×2 (08:14→17:08)
[2017-05-14] MEDS ORDERED: PT OWN MED DRAWER 7, Y5N ONE ×4 (08:51→21:14)
[2017-05-14] MEDS ORDERED: EMTRICITABINE 200MG/TENOFOVIR 300MG PO SCH (10:00)
[2017-05-14] MEDS: NYSTATIN 500,000 UNITS/5 ML SUSPENSION PO SCH ×4 (10:08→21:12)
[2017-05-14] MEDS: BACITRACIN 0.9 GM PACKET TP SCH (10:08)
[2017-05-14] MEDS: FLUCONAZOLE 100 MG TABLET (UD) PO SCH (10:09)
[2017-05-14] MEDS: NIFEdipine E.R. 90 MG TABLET (FP) PO SCH (10:09)
[2017-05-14] MEDS: PRENATAL VITAMINS W/ FOLIC ACID TABLET (FP) PO SCH (10:09)
[2017-05-14] MEDS: valACYclovir HCL 500 MG TABLET (FP) PO SCH (10:09)
[2017-05-14] MEDS: RANITIDINE HCL 150 MG TABLET (FP) PO SCH (10:09)
[2017-05-14] MEDS: LISINOPRIL 10 MG TABLET (FP) PO SCH ×2 (10:09→21:11)
[2017-05-14] MEDS: hydrOXYzine PAMOATE 50 MG CAPSULE (FP) PO PRN ×2 (13:49→18:06)
[2017-05-14] MEDS ORDERED: DARUNAVIR ETHANOLATE 100 MG/ML BULK BOTTLE PO ONE (18:48)
[2017-05-14] MEDS: MICONAZOLE NITRATE 2% VAGINAL CREAM 45 GM TUBE VG SCH (21:11)
[2017-05-14] MEDS: SUVOREXANT 10 MG TABLET PO PRN (21:11)
[2017-05-14] MEDS: diphenhydrAMINE HCL 50 MG CAPSULE PO PRN (21:11)
[2017-05-14] MEDS: THIAMINE HCL 100 MG TABLET (FP) PO SCH (21:11)
[2017-05-14] MEDS: RITONAVIR 100 MG TABLET PO SCH (21:15)
[2017-05-15] MEDS: glipiZIDE 5 MG TABLET (FP) PO SCH (06:48)
[2017-05-15] MEDS ORDERED: INSULIN (NOVOLOG) ASPART 100 UNITS/ML 10ML VIAL ONE ×2 (07:59→16:52)
[2017-05-15] MEDS: INSULIN (NOVOLOG) ASPART 100 UNITS/ML 10ML VIAL SQ SCH ×2 (08:02→17:06)
[2017-05-15] MEDS: DARUNAVIR ETHANOLATE 800 MG TAB PO SCH (08:03)
[2017-05-15] MEDS: RANITIDINE HCL 150 MG TABLET (FP) PO SCH ×3 (09:42→23:20)
[2017-05-15] MEDS: LISINOPRIL 10 MG TABLET (FP) PO SCH ×2 (09:42→21:21)
[2017-05-15] MEDS: FLUCONAZOLE 100 MG TABLET (UD) PO SCH (09:43)
[2017-05-15] MEDS: valACYclovir HCL 500 MG TABLET (FP) PO SCH (09:43)
[2017-05-15] MEDS: NYSTATIN 500,000 UNITS/5 ML SUSPENSION PO SCH ×4 (09:43→21:22)
[2017-05-15] MEDS: BACITRACIN 0.9 GM PACKET TP SCH (09:43)
[2017-05-15] MEDS: RITONAVIR 100 MG TABLET PO SCH ×2 (09:43→21:23)
[2017-05-15] MEDS: PRENATAL VITAMINS W/ FOLIC ACID TABLET (FP) PO SCH (09:43)
[2017-05-15] MEDS: NIFEdipine E.R. 90 MG TABLET (FP) PO SCH (09:43)
[2017-05-15] MEDS: hydrOXYzine PAMOATE 50 MG CAPSULE (FP) PO PRN (12:37)
[2017-05-15] MEDS ORDERED: MAGNESIUM HYDROX 2400MG/30ML ORAL SUSPENSION 30 ML CUP PO ONE (16:32)
[2017-05-15] MEDS ORDERED: PT OWN MED DRAWER 7, Y5N ONE ×2 (17:09→19:36)
[2017-05-15] MEDS: diphenhydrAMINE HCL 50 MG CAPSULE PO PRN ×2 (21:21→23:22)
[2017-05-15] MEDS: THIAMINE HCL 100 MG TABLET (FP) PO SCH (21:21)
[2017-05-16] MEDS: glipiZIDE 5 MG TABLET (FP) PO SCH (06:25)
[2017-05-16] MEDS ORDERED: INSULIN (NOVOLOG) ASPART 100 UNITS/ML 10ML VIAL ONE (06:29)
[2017-05-16 07:24] VITALS: TEMP 98.3
[2017-05-16] MEDS: DARUNAVIR ETHANOLATE 800 MG TAB PO SCH (07:50)
[2017-05-16] MEDS: INSULIN (NOVOLOG) ASPART 100 UNITS/ML 10ML VIAL SQ SCH (07:50)
[2017-05-16] MEDS ORDERED: PT OWN MED DRAWER 7, Y5N ONE (08:31)
[2017-05-16] MEDS: BACITRACIN 0.9 GM PACKET TP SCH (09:00)
--- NOTE | 2017-05-16 09:00 | PN ---
Psychiatric Progress Note Vital Signs: Vital Signs Period Temp Pulse Resp BP Sys/Rojas Pulse Ox Last 24 Hr 98.2 F-98.3 F 83-91 18-18 95-129/61-76 Date of Session: 05/16/17 Chief Complaint:: Discharge visit HPI: Patient addressed Opioid and Alcohol dependence comorbid with Substance induced mood disorder. ROS: Significant for HIV+,Anemia,HTN,DM. Current Medications: Active Medications Generic Name Dose Route Start Last Admin Trade Name Freq PRN Reason Stop Dose Admin Acetaminophen 650 mg 05/11/17 14:20 05/15/17 14:22 Tylenol - PO 650 mg Q4H PRN Administration FEVER OR PAIN Albuterol Sulfate 2 puff 05/11/17 14:27 Ventolin Hfa Inhaler - IH Q4H PRN SHORT OF BREATH/WHEEZING Bacitracin 0.9 gm 05/12/17 16:00 05/15/17 09:43 Bacitracin - TP 0.9 gm DAILY LUIS Administration Darunavir 800 mg 05/12/17 08:00 05/16/17 07:50 Prezista - PO 800 mg DAILY@0800 LUIS Administration Diphenhydramine HCl 50 mg 05/11/17 14:20 05/15/17 23:22 Benadryl - PO 50 mg HSMR1 PRN Administration FOR ITCHING Emtricitabine/Tenofovir 1 tab 05/14/17 10:00 Truvada PO Q2D LUIS Eucalyptus/Menthol/Phenol/Sorbitol 1 each 05/11/17 14:20 Cepastat Lozenge - MM Q4H PRN SORE THROAT Fluconazole 100 mg 05/12/17 10:00 05/15/17 09:43 Diflucan - PO 100 mg DAILY LUIS Administration Glipizide 5 mg 05/12/17 07:00 05/16/17 06:25 Glucotrol - PO 5 mg DAILY@0700 LUIS Administration Guaifenesin 10 ml 05/11/17 14:20 Robitussin Dm - PO Q6H PRN COUGH Hydroxyzine Pamoate 50 mg 05/12/17 12:24 05/15/17 12:37 Vistaril - PO 50 mg Q4H PRN Administration ANXIETY Ibuprofen 400 mg 05/11/17 14:20 Motrin - PO Q6H PRN PAIN Insulin Aspart 0 units 05/11/17 16:30 08/07/17 07:50 Novolog Vial SQ 2 units BIDAC LUIS Administration Protocol Lisinopril 10 mg 05/11/17 22:00 05/15/17 21:21 Prinivil PO 10 mg BID LUIS Administration Loperamide HCl 4 mg 05/11/17 14:20 Imodium - PO Q6H PRN DIARRHEA Nicotine Polacrilex 2 mg 05/11/17 14:20 05/13/17 21:39 Nicorette Gum - BUC 2 mg Q2H PRN Administration NICOTINE REPLACEMENT RX Nifedipine 90 mg 05/12/17 10:00 05/15/17 09:43 Procardia Xl - PO 90 mg DAILY LUIS Administration Nystatin 500,000 units 05/13/17 18:00 05/15/17 21:22 Nystatin Oral Suspension - PO 500,000 units QID LUIS Administration Multivit/Folic Acid/Iron 1 tab 05/12/17 10:00 05/15/17 09:43 Vitamins (Sjr) - PO 1 tab DAILY LUIS Administration Pseudoephedrine/Triprolidine 1 combo 05/11/17 14:20 Actifed - PO TID PRN NASAL CONGESTION Ranitidine HCl 150 mg 05/15/17 22:00 05/15/17 23:20 Zantac - PO 150 mg BID LUIS Administration Ritonavir 100 mg 05/14/17 22:00 05/15/17 21:23 Norvir - PO Not Given BID LUIS Thiamine HCl 100 mg 05/11/17 22:00 05/15/17 21:21 Vitamin B1 - PO 100 mg HS LUIS Administration Valacyclovir HCl 500 mg 05/12/17 10:00 05/15/17 09:43 Valtrex - PO 500 mg DAILY LUIS Administration Current Side Effect: No Lab tests ordered: No Lab tests reviewed: Yes Provider note:: Patient completed 5 days of the treatment(early medical discharge).She has met her treatment plan partially and is going to continue to address her issues on outpatient basis at [facility] in [facility]. Patient continues to find that Vistaril 50 mg po prn helps to control her anxiety and Benadryl 50 mg po hs control her sleeping difficulties and is going take it as needed while on outpatient treatment. Therapy provided focusing on relapse prevention.Coping skills,suport system utilization to maintain recovery has been discussed with patient. Patient is stable for discharge today. Total face to face time:: 30 Mental Status Exam - Mental Status Exam Alert and Oriented to: Time, Place, Person Cognitive Function: Grossly Intact Patient Appearance: Well Groomed Mood: Euthymic Affect: Mood Congruent, Normal Range Patient Behavior: Cooperative Speech Pattern: Clear Voice Loudness: Normal Thought Process: Goal Oriented Thought Disorder: Not Present Hallucinations: Denies Suicidal Ideation: Denies Homicidal Ideation: Denies Insight/Judgement: Fair Sleep: Fair Appetite: Fair Muscle strength/Tone: Normal Gait/Station: Normal Psychiatric Treatment Plan - Problem List (2) UTI (urinary tract infection) Qualifiers: Encounter type: initial encounter (3) Asthma Qualifiers: Asthma severity: mild intermittent Asthma complication type: uncomplicated Qualified Code(s): J45.20 - Mild intermittent asthma, uncomplicated (4) DM (diabetes mellitus) Qualifiers: Diabetes mellitus type: type 2 Diabetes mellitus complication status: without complication Diabetes mellitus detention insulin use: unspecified detention insulin use status Qualified Code(s): E11.9 - Type 2 diabetes mellitus without complications Comment: last bgm 146 (6) HIV (human immunodeficiency virus infection) Comment: CD4 222/ viral load 60 on complera (7) HTN (hypertension) Qualifiers: Hypertension type: essential hypertension Qualified Code(s): I10 - Essential (primary) hypertension
[2017-05-16] MEDS: FLUCONAZOLE 100 MG TABLET (UD) PO SCH (09:01)
[2017-05-16] MEDS: RANITIDINE HCL 150 MG TABLET (FP) PO SCH (09:01)
[2017-05-16] MEDS: RITONAVIR 100 MG TABLET PO SCH (09:01)
[2017-05-16] MEDS: valACYclovir HCL 500 MG TABLET (FP) PO SCH (09:01)
[2017-05-16] MEDS: NYSTATIN 500,000 UNITS/5 ML SUSPENSION PO SCH (09:02)
[2017-05-16] MEDS: PRENATAL VITAMINS W/ FOLIC ACID TABLET (FP) PO SCH (09:02)
[2017-05-16] MEDS: LISINOPRIL 10 MG TABLET (FP) PO SCH (09:03)
[2017-05-16] MEDS: NIFEdipine E.R. 90 MG TABLET (FP) PO SCH (09:03)
[2017-05-16 10:24] VITALS: BP 103/66; PULSE 77
== END 2017-05-16 09:03 | disposition home or self-care (01) | DRG 772 ==
LOC: YASAS 12:05 → Y3E 12:06
PROVIDERS: ADMIT Psychiatry & Neurology Psychiatry; ATTEND Psychiatry & Neurology Psychiatry
PROC: HZ42ZZZ Group Counseling for Substance Abuse Treatment, Cognitive-Behavioral (ICD-10-PCS; principal; 2017-05-11)
DX: F11.20 Opioid dependence, uncomplicated (principal); F10.20 Alcohol dependence, uncomplicated; F19.24 Other psychoactive substance dependence with psychoactive substance-induced mood disorder; N39.0 Urinary tract infection, site not specified; Z21 Asymptomatic human immunodeficiency virus [HIV] infection status; J45.20 Mild intermittent asthma, uncomplicated; E11.9 Type 2 diabetes mellitus without complications; D64.9 Anemia, unspecified; R10.9 Unspecified abdominal pain; R53.1 Weakness; R05 Cough; B37.0 Candidal stomatitis; B35.3 Tinea pedis; Z88.1 Allergy status to other antibiotic agents; Z87.42 Personal history of other diseases of the female genital tract; W07.XXXA Fall from chair, initial encounter; Y93.89 Activity, other specified; Y92.238 Other place in hospital as the place of occurrence of the external cause
CPT/HCPCS: 36415; 71010-TC; 80048; 85027

== ENCOUNTER 2017-05-13 03:13 | Emergency (ER) | payer OTHER ==
[2017-05-13 03:35] VITALS: BMI 22.6
--- NOTE | 2017-05-13 04:34 | PDOC ---
History of Present Illness - General Chief Complaint: Pain Stated Complaint: ABDOMINAL PAIN Time Seen by Provider: 05/13/17 03:42 - History of Present Illness Initial Comments: 05/13/17 06:58 Patient, resident of [facility] on recent "detox" comes in the ED complaining of pain in the right flank and epigastrium, vomiting patient is pre-renal on chemistry : 2L NS + zofran. To be admitted back to [facility]. Patient discharged to Veronica ARITA and team. Past History - Past Medical History Allergies/Adverse Reactions: Allergies Allergy/AdvReac Type Severity Reaction Status Date / Time sulfamethoxazole AdvReac Severe Hives Verified 05/13/17 05:21 [From Bactrim] trimethoprim [From Bactrim] AdvReac Severe Hives Verified 05/13/17 05:21 Home Medications: Ambulatory Orders Zolpidem Tartrate [Ambien -] 10 mg PO HS 05/12/15 Glipizide [Glucotrol -] 5 mg PO BID 06/30/16 Sitagliptin Phosphate [Januvia -] 100 mg PO DAILY@0700 06/30/16 Valacyclovir HCl [Valtrex -] 500 mg PO DAILY 06/30/16 Trazodone HCl [Desyrel -] 50 mg PO HS #30 tablet 07/02/16 Albuterol Sulfate Inhaler - [Ventolin HFA Inhaler -] 2 inh IH Q4H PRN 05/06/17 Clonidine HCl [Catapres -] 0.2 mg PO BID 05/06/17 Darunavir/Cobicistat [Prezcobix 800 mg-150 mg Tablet] 1 each PO DAILY 05/06/17 Emtricitabine/Tenofov Alafenam [Descovy 200-25 mg Tablet] 1 each PO DAILY Nifedipine ER [Procardia Xl -] 90 mg PO DAILY 05/06/17 Lisinopril 10 mg PO BID 05/11/17 Anemia: Yes (on iron ) Asthma: Yes Cancer: No Cardiac Disorders: No CVA: No COPD: No CHF: No Dementia: No Diabetes: Yes (w/neuropathy) GI Disorders: No Disorders: No HTN: Yes Hypercholesterolemia: No Kidney Stones: No Liver Disease: No Suicide Attempt (Hx): No Seizures: No Thyroid Disease: No Other medical history: Insomnia - Surgical History Abdominal Surgery: Yes (2010-exploratory lap) Appendectomy: No Cardiac Surgery: No Cholecystectomy: No Lung Surgery: No Neurologic Surgery: No Orthopedic Surgery: No - Reproductive History PID: No - Psycho/Social/Smoking Cessation Hx Anxiety: Yes Suicidal Ideation: No Smoking History: Current every day smoker Have you smoked in the past 12 months: Yes Number of Cigarettes Smoked Daily: 10 Cigars Per Day: 0 Information on smoking cessation initiated: No 'Breaking Loose' booklet given: 05/06/17 Hx Alcohol Use: Yes Drug/Substance Use Hx: Yes (Crack cocaine, heroine) Substance Use Type: Alcohol, Cocaine, Heroin, Tranquilizers Hx Substance Use Treatment: Yes (left this program AMA in 2014) *Physical Exam - Vital Signs Last Vital Signs Temp Pulse Resp BP Pulse Ox 98.3 F 90 20 114/79 100 05/13/17 03:29 05/13/17 03:29 05/13/17 03:29 05/13/17 03:29 05/13/17 03:29 ED Treatment Course - LABORATORY CBC & Chemistry Diagram: 05/13/17 05:17 05/13/17 05:17 *DC/Admit/Observation/Transfer Diagnosis at time of Disposition: Dehydration - Discharge Dispostion Disposition: HOME Admit: No
[2017-05-13] MEDS ORDERED: KETOROLAC TROMETHAMINE 10 MG TABLET PO ONE (04:53)
[2017-05-13] MEDS ORDERED: ONDANSETRON 4 MG/2 ML VIAL IVPUSH ONE (05:03)
[2017-05-13] MEDS ORDERED: KETOROLAC TROMETHAMINE 60 MG/2 ML VIAL IVPUSH ONE (05:04)
[2017-05-13] MEDS ORDERED: KETOROLAC TROMETHAMINE 60 MG/2 ML VIAL ONE (05:11)
[2017-05-13] MEDS ORDERED: ONDANSETRON 4 MG/2 ML VIAL ONE (05:11)
[2017-05-13 05:33] LABS: EOSINOPHIL 1.5 % (0-4.5); MCH 31.5 pg (25.7-33.7); MCHC 33.5 g/dl (32.0-36.0); MEAN CELL VOLUME 93.9 fl (80-96); MEAN PLT VOLUME 7.1 fl (7.5-11.1); NEUTROPHILS 68.5 % (42.8-82.8); PLATELET COUNT 409 K/MM3 (134-434); RDW 16.3 % (11.6-15.6); WHITE BLOOD COUNT 5.6 K/mm3 (4.0-10.0)
[2017-05-13 06:04] LABS: ALBUMIN 3.7 g/dl (3.4-5.0); ANION GAP 10 (8-16); BILIRUBIN,TOTAL 0.4 mg/dL (0.2-1.0); CALCIUM 9.8 mg/dL (8.5-10.1); CO2 29 mmol/L (21-32); CREATININE 2.4 mg/dL (0.55-1.02); GLUCOSE,RANDOM 298 mg/dL (74-106); SGOT/AST 27 U/L (15-37); SGPT/ALT 43 U/L (12-78); TOT PROT 9.4 g/dl (6.4-8.2)
[2017-05-13 06:05] LABS: ALK PHOS 111 U/L (45-117)
[2017-05-13] MEDS ORDERED: SODIUM CHLORIDE 500 ML IV STA (06:20)
[2017-05-13 06:53] VITALS: PULSE 87; TEMP 98
[2017-05-13] MEDS ORDERED: SODIUM CHLORIDE 1,500 ML IV STA (06:57)
--- NOTE | 2017-05-13 07:00 | PDOC ---
Attending Attestation - Resident Resident Name: Aneesh Stone - ED Attending Attestation I have performed the following: I have examined & evaluated the patient, The case was reviewed & discussed with the resident, I agree w/resident's findings & plan, Exceptions are as noted - HPI HPI: 05/13/17 06:59 Abdominal Pain, inpatient in Rehab for alcohol...... 8 days sober - Physicial Exam PE: 05/13/17 07:00 Abdomen Soft and Benign - Medical Decision Making 05/13/17 07:00 Dehydration, IV Fluids and DC back to Rehab
[2017-05-13] MEDS ORDERED: ACETAMINOPHEN INJECTION 100 ML IVPB ONE (07:12)
--- NOTE | 2017-05-13 07:17 | PDOC ---
*Physical Exam - Vital Signs Last Vital Signs Temp Pulse Resp BP Pulse Ox 98 F 87 18 118/78 100 05/13/17 06:52 05/13/17 06:52 05/13/17 06:52 05/13/17 06:52 05/13/17 06:52 - Physical Exam Comments: 05/13/17 09:11 General Appearance: Nourished. No Apparent Distress HEENT: No Pharyngeal Erythema, Tonsillar Exudate, Tonsillar Erythema Respiratory/Chest: Lungs Clear, Normal Breath Sounds. No Crackles, Rales, Rhonchi, Wheezing Cardiovascular: Regular Rhythm, Regular Rate. No Murmur, Gallop/S3, Gallop/S4 Gastrointestinal/Abdominal: Normal Bowel Sounds, Soft, Diffuse tenderness to palpation worse in the epigastric region No Guarding, Rebound Extremity: Normal Capillary Refill Integumentary: Normal Color, Dry, Warm Neurologic: Fully Oriented, Alert, Normal Mood/Affect, Normal Response ED Treatment Course - LABORATORY CBC & Chemistry Diagram: 05/13/17 05:17 05/13/17 05:17 - ADDITIONAL ORDERS Additional order review: Laboratory Results 05/13/17 05:17 Sodium 135 L Potassium 5.1 Chloride 96 L Carbon Dioxide 29 Anion Gap 10 BUN 42 H Creatinine 2.4 H D Creat Clearance w eGFR 21.12 Random Glucose 298 H D Calcium 9.8 Total Bilirubin 0.4 D AST 27 D ALT 43 D Alkaline Phosphatase 111 D Total Protein 9.4 H D Albumin 3.7 D 05/13/17 05:17 RBC 3.67 MCV 93.9 MCHC 33.5 RDW 16.3 H MPV 7.1 L Neutrophils % 68.5 D Lymphocytes % 14.9 D Monocytes % 14.1 H Eosinophils % 1.5 Basophils % 1.0 - Medications Given in the ED: ED Medications Discontinued Medications Generic Name Dose Route Start Last Admin Trade Name Freq PRN Reason Stop Dose Admin Ketorolac Tromethamine 20 mg 05/13/17 04:53 05/13/17 05:13 Toradol PO 05/13/17 04:54 Not Given ONCE ONE Ketorolac Tromethamine 60 mg 05/13/17 05:04 05/13/17 05:13 Toradol Injection - IVPUSH 05/13/17 05:05 60 mg ONCE ONE Administration Ondansetron HCl 4 mg 05/13/17 05:03 05/13/17 05:13 Zofran Injection IVPUSH 05/13/17 05:04 4 mg ONCE ONE Administration Progress Note - Progress Note Progress Note: Received sign out from Dr. Stone. Patient is a 51 year old female with a history of polysubstance abuse, HIV who presents from [facility] rehab with abdominal pain. Patient reports 3 days of twisting epigastric abdominal pain with associated nausea as well as cough and blood tinged sputum. Work up including cbc, cmp has been negative thus far and she has received two liters of NS. She denies fevers, chills, SOB, chest pain, or changes in urination or bowel movements. Medical Decision Making - Medical Decision Making 05/13/17 09:20 Patient is a 51 year old female who presents with abdominal pain. Given her reported history and physical exam including diffuse abdominal tenderness, we will obtain a CT abdomen with PO contrast and chest radiograph for further evaluation. 05/13/17 11:56 CT abdomen demonstrated some distal esophageal thickening as read by our radiologist. We are concerned for fungal esophagitis and will Consult ID to discuss the case. Chest radiograph is negative as read by our radiologist. 05/13/17 11:[address] Peraza. She does not believe that esophagitis would lead to esophageal thickening. However, we believe that the patient's symptoms are likely due to fungal esophagitis to which Dr. Peraza informed us that it could be treated as an outpatient with oral antifungals. She states that as long as the patient is able to tolerate PO intake, the patient would be able to be discharged as long as we are comfortable with a diagnosis of esophagitis. We discussed the results and discussion with the patient who noted that she has had esophagitis in the past which responded well to diflucan swish and swallow. We will PO challenge the patient as well. 05/13/17 14:11 Patient passed PO challenge and we feel comfortable discharging the patient back to [facility] rehab. We discussed the case with Dr. Cuba who agreed to accept the patient back at [facility] and is aware of the plan to treat with diflucan swish and swallow. *DC/Admit/Observation/Transfer Diagnosis at time of Disposition: Dehydration, Esophagitis - Discharge Dispostion Disposition: TRANSFER ACUTE CARE/OTHER HOSP Condition at time of disposition: Improved Admit: No - Prescriptions Prescriptions: Fluconazole [Diflucan] 30 mg PO QID #35 ml - Referrals Referrals: STAFF,NOT ON [Primary Care Provider] - - Patient Instructions Printed Discharge Instructions: DI for Esophagitis Additional Instructions: Please return to the ER if you experience concerning or worsening symptoms. Please use a diflucan swish and swallow to help with your esophagitis. Please follow up with your primary care provider to discuss your visit to the ER. - Post Discharge Activity - Transfer to Acute Care Facility Receiving Facility: Other hosp. not listed ([facility]) Accepting Physician:: Dr. Cuba - Attestations Physician Attestion: 05/13/17 12:58 I, Dr. Reg Levi, attest that this document has been prepared under my direction and personally reviewed by me in its entirety. I further attest, that it accurately reflects all work, treatment, procedures and medical decision -making performed by me.
[2017-05-13] MEDS ORDERED: ACETAMINOPHEN 1000 MG/100 ML VIAL (NON FORMULARY) IVPB ONE (07:19)
[2017-05-13] MEDS ORDERED: morphine CARPU-JECT 4 MG/1 ML DISP.SYRIN IVPUSH ONE (07:33)
[2017-05-13] MEDS ORDERED: morphine CARPU-JECT 4 MG/1 ML DISP.SYRIN ONE (07:55)
--- NOTE | 2017-05-13 10:04 | EKG ---
Test Reason : Blood Pressure : / mmHG Vent. Rate : 083 BPM Atrial Rate : 083 BPM P-R Int : 154 ms QRS Dur : 082 ms QT Int : 392 ms P-R-T Axes : 058 012 088 degrees QTc Int : 460 ms NORMAL SINUS RHYTHM MINIMAL VOLTAGE CRITERIA FOR LVH, MAY BE NORMAL VARIANT SEPTAL INFARCT , AGE UNDETERMINED NONSPECIFIC ST ABNORMALITY Confirmed by ANGEL FERNANDES MD ([id number]) on 05/13/2017 10:04:05 AM Referred By: Confirmed By:ANGEL FERNANDES MD
[2017-05-13 10:09] LABS: URINE APPEARANCE TURBID; URINE BILIRUBIN NEGATIVE (NEGATIVE); URINE BLOOD 1+ (NEGATIVE); URINE COLOR DKYELLOW; URINE GLUCOSE (UA) 3+ (NEGATIVE); URINE KETONE NEGATIVE (NEGATIVE); URINE NITRITE NEGATIVE (NEGATIVE); URINE UROBILINOGEN NEGATIVE mg/dL (0.2-1.0)
[2017-05-13 10:16] LABS: URINE LEUK ESTERASE 2+ (NEGATIVE); URINE PROTEIN 2+ (NEGATIVE)
[2017-05-13 10:22] LABS: URINE BACTERIA MANY /hpf (NONE SEEN); URINE RBC 149 /hpf (0-3); URINE WBC 506 /hpf (3-5)
[2017-05-13 13:43] VITALS: BP 127/70
== END 2017-05-13 13:44 | disposition short-term general hospital (02) ==
LOC: JER 03:13
PROC: 3E0333Z Introduction of Anti-inflammatory into Peripheral Vein, Percutaneous Approach (ICD-10-PCS; principal; 2017-05-13)
PROC: 3E033NZ Introduction of Analgesics, Hypnotics, Sedatives into Peripheral Vein, Percutaneous Approach (ICD-10-PCS; 2017-05-13)
PROC: 3E033GC Introduction of Other Therapeutic Substance into Peripheral Vein, Percutaneous Approach (ICD-10-PCS; 2017-05-13)
PROC: 3E0337Z Introduction of Electrolytic and Water Balance Substance into Peripheral Vein, Percutaneous Approach (ICD-10-PCS; 2017-05-13)
DX: E86.0 Dehydration (principal); F19.10 Other psychoactive substance abuse, uncomplicated; F17.210 Nicotine dependence, cigarettes, uncomplicated; I10 Essential (primary) hypertension; E11.9 Type 2 diabetes mellitus without complications; J45.909 Unspecified asthma, uncomplicated
CPT/HCPCS: 36415; 71020-TC; 74176-TC; 80053; 81003; 81015; 83690; 85025; 93005; 93010; 96361; 96374; 96375; 99284-25; Q9967